=== PATIENT | female | born 1970 | race African-American/Black ===

== ENCOUNTER 2020-11-10 16:50 | Emergency (ER) | payer OTHER, SELFPAY ==
--- NOTE | 2020-11-10 17:00 | ED.GENADULT ---
HPI - General Adult General Chief complaint: Wound/Laceration Stated complaint: Finger Pain Time Seen by Provider: 11/10/20 17:01 Source: patient Mode of arrival: ambulatory Limitations: no limitations History of Present Illness HPI narrative: 42-year-old female patient presents to the [facility] with complaints of a wound to the right middle finger x1 week. Patient states she has been trying to soak it and put some antibiotic ointment on it but states it continues to swell and feels like there is pressure. Denies any fevers, body aches or chills. Related Data Home Medications Medication Instructions Recorded Confirmed Aspir-81 11/10/20 Daily Multivitamin 11/10/20 clopidogrel [Plavix] 11/10/20 hydrochlorothiazide 11/10/20 metoprolol succinate 11/10/20 venlafaxine [Effexor] mg 11/10/20 Allergies Allergy/AdvReac Type Severity Reaction Status Date / Time Sulfa (Sulfonamide Allergy Hives Verified 11/10/20 17:23 Antibiotics) Review of Systems Review of Systems: Narrative: CONSTITUTIONAL: Denies fever, chills, or sweats. EYES: Denies visual changes, redness, or discharge. ENT: Denies rhinorrhea, congestion, sore throat, or otalgia. CARDIOVASCULAR: Denies chest pain, palpitations, or edema. RESPIRATORY: Denies cough or dyspnea. GASTROINTESTINAL: Denies abdominal pain, nausea, vomiting, or diarrhea. GENITOURINARY: Denies dysuria or hematuria. SKIN: Denies rash or itching. Positive right middle finger wound x1 week MUSCULOSKELETAL: Denies back pain, joint pain, or myalgia. NEUROLOGIC: Denies headache, numbness, or weakness. PSYCHIATRIC: Denies anxiety or depression. PMFSH Comments At the time of my signature I agree with nursing past medical history, surgical, social, and family history. There is no relevant family history pertinent to the presenting complaint. Exam Narrative: Exam Narrative: GENERAL: Well-appearing, well-nourished, and in no acute distress. HEAD: Normocephalic, atraumatic. EYES: PERRLA and EOMI. ENT: Nares clear, no rhinorrhea or epistaxis. Mucous membranes moist. NECK: Supple. No lymphadenopathy CHEST: Clear to auscultation. No respiratory distress. HEART: Regular rate and rhythm. No murmur heard. Normal peripheral pulses. ABDOMEN: Soft, nontender, nondistended, normal active bowel sounds. EXTREMITIES: Normal range of motion. No edema. SKIN: Warm, dry, no rash. Patient does have some swelling noted to the lateral side of the right middle finger around the nailbed with a little bit of erythema, some warmth and tenderness noted. Does appear to be an obvious paronychia. NEURO: No focal deficits. Alert and oriented x3. Course Vital Signs Vital signs: Vital Signs Temperature 36.6 C 11/10/20 17:16 Pulse Rate 66 11/10/20 17:16 Respiratory Rate 16 11/10/20 17:16 Blood Pressure 150/89 H 11/10/20 17:16 Pulse Oximetry 98 11/10/20 17:16 Temperature 36.6 C 11/10/20 17:16 Pulse Rate 66 11/10/20 17:16 Respiratory Rate 16 11/10/20 17:16 Blood Pressure 150/89 H 11/10/20 17:16 Pulse Oximetry 98 11/10/20 17:16 Vital signs reviewed The patient has been informed that they may have pre-hypertension or Hypertension based on a BP reading in the department. I recommend that the patient call the primary care provider listed on their discharge instructions or a physician of their choice this week to arrange follow up for further evaluation of possible pre-hypertension or Hypertension Procedures Other Procedure Procedure 1: Other Procedure: The right middle finger was cleaned with Betadine swabs. An 18-gauge needle was used to go into the cuticle area on the lateral side and open up the paronychia. Yellow pus was released. The finger was cleansed with saline, patted dry and applied antibiotic ointment and a Band-Aid to the area. Patient tolerated procedure well. Medical Decision Making Differential Diagnosis Differential Diagnosis: Differential diagnosis:
--- NOTE | 2020-11-10 17:04 | PC.NURSE ---
call attempted and message left.
[2020-11-10 17:16] VITALS: BP 150/89; PULSE 66; RESP 16; TEMP 36.6; O2SAT 98
== END 2020-11-10 17:34 | disposition home or self-care (01) ==
PROVIDERS: Emergency Provider Nurse Practitioner Family
DX: L03.011 Cellulitis of right finger (principal); Z86.73 Personal history of transient ischemic attack (TIA), and cerebral infarction without residual deficits; I10 Essential (primary) hypertension; Z98.84 Bariatric surgery status
CPT/HCPCS: 10060; 99203; G0463

== ENCOUNTER 2020-12-18 13:12 | Emergency (ER) | payer OTHER, SELFPAY ==
--- NOTE | ~2020-12-18 | CT_ITS ---
EXAMINATION: CT BRAIN W/O DATE: 12/18/2020 16:32 INDICATION: Headache TECHNIQUE: Computed tomography (CT) of the head was performed without intravenous contrast. The dose- length product was 605.33 mGy-cm. Automated exposure control and iterative reconstruction technique w ere employed. COMPARISON: No prior studies for comparison. FINDINGS: Normal brain parenchymal volume for age. Normal mckeon-white differentiation. No acute intrac ranial hemorrhage, infarction, mass or mass effect. No ventriculomegaly or midline shift. Midline sagittal images demonstrate a normal corpus callosum, c raniovertebral junction and sella turcica. Basilar cisterns are patent. Paranasal sinuses and mastoids are pneumatized. No depressed skull fractures. IMPRESSION: 1. No acute intracranial abnormality. Reviewed, dictated and finalized at location A.
[2020-12-18 13:35] VITALS: BP 135/73; PULSE 66; RESP 16; TEMP 36.4; O2SAT 100
--- NOTE | 2020-12-18 16:20 | ED.HA ---
HPI - Headache General Chief Complaint: Headache Stated Complaint: high blood pressure Time Seen by Provider: 12/18/20 16:12 Source: RN notes reviewed History of Present Illness HPI Narrative: Patient presents to emergency department from home for headache. Patient states that headache has been present since she woke this morning and is diffuse throughout the head states that described as throbbing she did try taking Tylenol this morning around 930 with minimal relief she denies any fevers or chills vision changes numbness or tingling in the extremities or any other symptoms. 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 and is on aspirin and Plavix patient also has a history of hypertension which she has been taking her medication she denies any nausea or vomiting Related Data Home Medications Medication Instructions Recorded Confirmed Aspir-81 11/10/20 Daily Multivitamin 11/10/20 clopidogrel [Plavix] 11/10/20 hydrochlorothiazide 11/10/20 metoprolol succinate 11/10/20 venlafaxine [Effexor] mg 11/10/20 Allergies Allergy/AdvReac Type Severity Reaction Status Date / Time Sulfa (Sulfonamide Allergy Hives Verified 11/10/20 17:23 Antibiotics) Review of Systems Review of Systems: Narrative: Gen.: Denies fevers or chills Eyes: Denies eye pain or visual change ENT: Denies congestion Respiratory: Denies shortness of breath or cough CV: Denies chest pain or palpitations GI: Denies abdominal pain nausea, emesis or diarrhea Musculoskeletal: Denies back pain or muscle pain Neuro: Reports headache Skin: Denies rash Except as documented, all other systems reviewed and negative FOR[facility] Past Medical History Medical History (Updated 12/18/20 @ 19:33 by Gianni Suazo DO) CVA (cerebral vascular accident) Social History Social History (Updated 12/18/20 @ 16:20 by Gianni Suazo DO) Smoking status: Never smoker Gender identity (if verbalized by the patient): Female Exam Narrative: Exam Narrative: APPEARANCE: No acute distress, nontoxic, resting in bed HEENT: Normocephalic, atraumatic, OMM, EYES: PERRL, EOMI NECK: Supple, nontender, full range of motion without pain, no meningismus RESPIRATORY: No respiratory distress, clear to auscultation bilaterally with no rhonchi wheezing or rales CARDIOVASCULAR: RRR s murmur ABDOMINAL: Soft, nontender, nondistended MUSCULOSKELETAL: Moves all extremities. No clubbing, cyanosis or edema. NEURO: A and O ?3, following commands, speech normal, no facial droop SKIN:: Warm, dry. Normal Color PSYCHIATRIC: Normal affect/mood Course Course Emergency Course: Patient states she is feeling better this time ready for discharge Discussed with patient results of workup and diagnosis. Discussed need for follow-up with primary care, proper use of medication, and reasons to return to the emergency department. Patient understands and agrees to current treatment plan Vital Signs Vital signs: Vital Signs Temperature 97.6 F 12/18/20 13:35 Pulse Rate 66 12/18/20 13:35 Respiratory Rate 16 12/18/20 13:35 Blood Pressure 135/73 12/18/20 13:35 Pulse Oximetry 100 12/18/20 13:35 Temperature 97.6 F 12/18/20 13:35 Pulse Rate 60 12/18/20 17:05 Respiratory Rate 18 12/18/20 17:05 Blood Pressure 141/66 H 12/18/20 17:05 Pulse Oximetry 98 12/18/20 17:05 MDM - Headache MDM Narrative Medical decision making narrative: Patient's headache was not sudden or maximal in onset. There are no focal deficits on exam. Subarachnoid hemorrhage is felt to be unlikely at this time. There is no history of fever and neck is supple to evaluation without meningismus. Meningitis is felt to be unlikely. No traumatic history or signs of trauma on evaluation. Risk factors for cerebral venous thrombosis reviewed, no visual acuity change benign funduscopy. Cerebral venous thrombosis is felt unlikely at this time. No ocu
--- NOTE | 2020-12-18 17:00 | PC.NURSE ---
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 Pt had her BP checked at work and was told to come in (BP 170/110, now normotensive). Hx CVA with residual RUE weakness, +hx HTN, +thinners. [place] scale negative for new deficits
[2020-12-18 17:05] VITALS: BP 141/66; PULSE 60; RESP 18; O2SAT 98
[2020-12-18] MEDS: SODIUM CHLORIDE 0.9% IV 1,000 ML 999 ML IV CONT (17:45)
[2020-12-18] MEDS: diphenhydrAMINE HCl INJ 50 MG/ML VIAL 25 MG IV PUSH (17:45)
[2020-12-18] MEDS: KETOROLAC 30 MG/ML VIAL (*BKC) IV PUSH (19:03)
[2020-12-18 19:34] VITALS: BP 121/81; PULSE 61; RESP 20; TEMP 37; O2SAT 98
--- NOTE | 2020-12-18 19:35 | PC.NURSE ---
Pt presents to ED with complaints of headache that has been persistent since arriving at work this morning. 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 Pt has been medicated and states pain has improved to 5/10 at this time. Pt noted to be alert and oriented x4, denies nausea, emesis and visual disturbances. Pt updated by EDMD and all questions and concerns addressed. Pt aware of pending dc and agrees. Vitals are stable and pt in no obvious distress at this time.
--- NOTE | 2020-12-18 19:42 | PC.NURSE ---
Pt updated on poc and all questions and concerns addressed. Pt advised to follow up with referred MD and to treat pain with OTC tylenol and return to ED with increasing symptoms. Pt voices her understanding and was able to ambulate from room and walk out of ED without difficulty.
[2020-12-18 19:49] VITALS: BP 121/81; PULSE 61; RESP 20; TEMP 37; O2SAT 98
== END 2020-12-18 19:50 | disposition home or self-care (01) ==
PROVIDERS: Emergency Provider Emergency Medicine
DX: R51.9 Headache, unspecified (principal); I10 Essential (primary) hypertension; I69.931 Monoplegia of upper limb following unspecified cerebrovascular disease affecting right dominant side; Z79.82 Long term (current) use of aspirin; Z79.02 Long term (current) use of antithrombotics/antiplatelets
CPT/HCPCS: 70450; 96361; 96374; 96375; 99284; J0131; J1200; J1885; J7030